=== PATIENT | male | born 1985 | race Caucasian/White ===

== ENCOUNTER → 2016-03-05 | Outpatient (CLI) | payer OTHER ==
[~2016-03-05] VITALS: Ht 175.3 cm; Wt 142.9 kg
[~2016-03-05] MED LIST: AMIT25TA19 PO; NAPR-1169 PO; VENL-273; VENL150T33
[2016-03-07 13:04] VITALS: Ht 175.3 cm; Wt 142.9 kg
== END | disposition home or self-care (01) ==
LOC: C.NRED 11:22
DX: E11.9 Type 2 diabetes mellitus without complications (principal); E66.01 Morbid (severe) obesity due to excess calories

== ENCOUNTER → 2016-07-08 | Outpatient (CLI) | payer OTHER ==
[2016-07-08 17:12] LABS: BLOOD UREA NITROGEN 11 mg/dl (7-18); BUN/CREATININE RATIO 14.3 (10-20); CALCIUM 8.8 mg/dl (8.5-10.1); CARBON DIOXIDE 31 mmol/L (21-32); CHLORIDE 105 mmol/L (98-107); CREATININE 0.76 mg/dl (0.60-1.40); GLUCOSE 171 mg/dl (70-99); POTASSIUM 4.2 mmol/L (3.5-5.1); SODIUM 139 mmol/L (136-145)
[2016-07-08 18:04] LABS: RATIO 4.3 mcg/mg (0-30.0)
[2016-07-09 06:33] LABS: ESTIMATED AVERAGE GLUCOSE 197 mg/dl; HA1C FLAG Normal (Normal)
== END ==
LOC: C.LABBC 13:42
DX: E03.9 Hypothyroidism, unspecified (principal); E11.9 Type 2 diabetes mellitus without complications

== ENCOUNTER → 2016-11-14 | Outpatient (CLI) | payer OTHER ==
[2016-11-14 17:12] LABS: BLOOD UREA NITROGEN 6 mg/dl (7-18); BUN/CREATININE RATIO 6.6 (10-20); CALCIUM 9.2 mg/dl (8.5-10.1); CARBON DIOXIDE 28 mmol/L (21-32); CHLORIDE 103 mmol/L (98-107); CREATININE 0.89 mg/dl (0.60-1.40); GLUCOSE 160 mg/dl (70-99); POTASSIUM 4.1 mmol/L (3.5-5.1); SODIUM 138 mmol/L (136-145)
[2016-11-15 06:08] LABS: ESTIMATED AVERAGE GLUCOSE 183 mg/dl; HA1C FLAG Normal (Normal)
== END | disposition home or self-care (01) ==
LOC: C.LABBC 14:37
DX: E11.9 Type 2 diabetes mellitus without complications (principal)

== ENCOUNTER → 2017-07-03 | Outpatient (CLI) | payer OTHER ==
[2017-07-03 16:47] LABS: BLOOD UREA NITROGEN 9 mg/dl (7-18); CALCIUM 8.9 mg/dl (8.5-10.1); CARBON DIOXIDE 29 mmol/L (21-32); CREATININE 0.81 mg/dl (0.60-1.40); GLUCOSE 201 mg/dl (70-99); POTASSIUM 4.2 mmol/L (3.5-5.1); SODIUM 136 mmol/L (136-145)
[2017-07-04 06:31] LABS: HEMOGLOBIN A1C 9.4 % (4.5-5.6)
== END | disposition home or self-care (01) ==
LOC: C.LABBC 12:32
DX: E11.9 Type 2 diabetes mellitus without complications (principal)

== ENCOUNTER → 2017-09-09 | Outpatient (CLI) | payer OTHER ==
[~2017-09-09] MED LIST changes: -NAPR-1169 PO; +NAPR-22 PO
[2017-09-09 14:33] LABS: BASO % 0.4 %; BASO ABS # 0.03 K/uL (0-0.2); EOS % 0.4 %; EOS ABS # 0.03 K/uL (0-0.5); HEMATOCRIT 43.2 % (42-52); HEMOGLOBIN 15.2 g/dL (14.0-18.0); IG# 0.01 K/uL (0.00-0.02); LYMPH % 32.4 %; LYMPH ABS # 2.47 K/uL (1.2-3.4); MEAN CELL VOLUME 84.5 fL (80-100); MEAN CORPUSCULAR HEMOGLOBIN 29.7 pg (25-34); MEAN CORPUSCULAR HGB CONC 35.2 g/dl (32-36); MEAN PLATELET VOLUME 9.9 fL (7.4-10.4); MONO ABS # 0.61 K/uL (0.11-0.59); NEUT % 58.7 %; NEUT ABS # 4.47 K/uL (1.4-6.5); PLATELET COUNT 234 K/uL (130-400); RED CELL DISTRIBUTION WIDTH CV 12.5 % (11.5-14.5); RED CELL DISTRIBUTION WIDTH SD 38.3 fL (36.4-46.3); WHITE BLOOD COUNT 7.62 K/uL (4.8-10.8)
[2017-09-09 14:42] LABS: BLOOD UREA NITROGEN 7 mg/dl (7-18); CALCIUM 8.7 mg/dl (8.5-10.1); CARBON DIOXIDE 29 mmol/L (21-32); CREATININE 0.86 mg/dl (0.60-1.40); GLUCOSE 165 mg/dl (70-99); SODIUM 130 mmol/L (136-145)
--- NOTE | 2017-09-09 15:25 | DIAGNOSTIC IMAGING REPORT ---
CHEST 2 VIEWS ROUTINE CLINICAL HISTORY: 31 years-old Male presenting with FEVER, COUGH. TECHNIQUE: PA and lateral views of the chest were obtained. COMPARISON: 04/10/2007. FINDINGS: Cardiomediastinal silhouette normal. Extensive dense infiltrate in the superior segment of the lingula along the periphery as well as in the anterior segment of the left upper lobe. No pleural effusion or pneumothorax. Osseous structures normal. Upper abdomen normal. IMPRESSION: 1. Left upper lobe/lingular pneumonia. No pleural effusion. Electronically signed by: Pedro Rodriguez M.D. 09/09/2017 3:24 PM Dictated Date/Time: 09/09/2017 3:23 PM
== END | disposition home or self-care (01) ==
LOC: C.LAB 13:40
DX: J18.9 Pneumonia, unspecified organism (principal)